=== PATIENT | female | born 1980 | race Caucasian/White ===

== ENCOUNTER → 2024-05-10 | Outpatient (CLI) | payer SELFPAY ==
--- NOTE | 2024-05-10 15:45 | RAD_ITS ---
EXAM: XR THORACIC SPINE, 3 VIEWS CLINICAL INDICATION: PAIN IN THORACIC SPIN TECHNIQUE: Frontal, lateral and swimmer''s views of the thoracic spine. COMPARISON: No relevant prior studies available. FINDINGS: VERTEBRAE: Unremarkable. Preserved vertebral body height. No fracture. No spondylolisthesis. Preservation of the normal thoracic kyphosis. No significant facet arthropathy. DISC SPACES: Unremarkable. Disc spaces are maintained. RAD/Thoracic Spine 3 Views IMPRESSION: No evidence of thoracic spinal fracture or spondylolisthesis. Electronically Signed: Efren Ward MD at 0:10 EST ,
--- NOTE | 2024-05-10 15:45 | RAD_ITS ---
EXAM: XR LUMBOSACRAL SPINE, 2 OR 3 VIEWS CLINICAL INDICATION: PAIN IN LOWER BACK TECHNIQUE: Frontal and lateral views of the lumbar spine and sacrum. COMPARISON: No relevant prior studies available. FINDINGS: VERTEBRAE: There is 6 mm anterior spondylolisthesis of L5 on S1. Preserved vertebral body height. No fracture. Preservation of the normal lumbar lordosis. No significant facet arthropathy. DISC SPACES: No acute findings. Disc spaces are maintained. GASTROINTESTINAL TRACT: Unremarkable as visualized. Included bowel gas pattern is non-obstructive. RAD/Lumbar Spine 2 or 3 Views IMPRESSION: No acute osseous abnormalities. There is 6 mm anterior spondylolisthesis of L5 on S1. Electronically Signed: Efren Ward MD at 0:10 EST ,
== END | disposition home or self-care (01) ==
PROVIDERS: PCP Family Medicine
DX: M54.6 Pain in thoracic spine (principal); M54.50 Low back pain, unspecified

== ENCOUNTER 2024-05-13 12:55 | Emergency (ER) | payer OTHER, SELFPAY ==
[2024-05-13 12:56] VITALS: BP 134/83; PULSE 91; RESP 16; TEMP 36.9; O2SAT 99; BMI 30.5
--- NOTE | 2024-05-13 13:48 | CT_ITS ---
STUDY: CT ABDOMEN AND PELVIS WITH CONTRAST REASON FOR EXAM: Female, 43 years old. Chronic abdominal pain. RADIATION DOSAGE (If Supplied By Facility): CTDIvol = ( 14.01 ) mGy, DLP = ( 1234.70 ) mGycm TECHNIQUE: Transaxial images were obtained from the dome of the diaphragm to the symphysis pubis without oral contrast. IV 100mL Isovue-300 was administered. Sagittal and coronal images were reconstructed. Individualized dose optimization techniques were used for this CT. COMPARISON: None. FINDINGS: The visualized lung bases are unremarkable. The visualized portions of the heart are within normal limits. Normal liver. Normal gallbladder and extrahepatic biliary system. Normal spleen. Normal pancreas. Normal bilateral adrenal glands. Normal right kidney. Normal left kidney. Normal visualized stomach. Normal small intestine. There are scattered colonic diverticula consistent with diverticulosis. The appendix is visualized and appears normal. Normal abdominal aorta. Normal inferior vena cava. Normal retroperitoneum. Normal urinary bladder. There is a small umbilical hernia containing fat. Normal osseous structures. CT/Abdomen/Pelvis W IV Cont ONLY IMPRESSION: Scattered sigmoid diverticula. Small umbilical hernia. Electronically Signed: Hemal Trejo MD at 15:52 EST ,
--- NOTE | 2024-05-13 13:56 | EX.ED.DYSGE1 ---
HPI <VIRIDIANA Escamilla - Last Filed: 05/13/24 16:24> History of Present Illness Chief Complaint: Back Narrative Narrative: 43-year-old female states she has had thoracic and lumbar back pain since February 26, 2024. She went to the [facility] and had outpatient x-rays which was negative for fracture and showed lower back spondylolisthesis. She states her back pain is not improving and she has an MRI scheduled next week. The pain is mainly in bilateral thoracic muscular areas and she feels like it is wrapping around her rib cage and causing her abdominal swelling. She thinks it is because palpitation she experienced last night while lying in bed. She states her normal resting heart rate is 60 but it got up to 95. She has no chest pain or shortness of breath. She is worried because her mom had back pain and when she had imaging was found to have spinal metastasis. PFSH <VIRIDIANA Escamilla - Last Filed: 05/13/24 16:24> PFSH Allergy/AdvReac Type Severity Reaction Status Date / Time amoxicillin (From Augmentin) AdvReac Intermediate headache Verified 05/13/24 13:00 clavulanic acid (From AdvReac Intermediate headache Verified 05/13/24 13:00 Augmentin) Social History (Updated 04/15/17 @ 09:26 by VIRIDIANA Campo) Smoking Status: Never smoker alcohol intake: never ROS <VIRIDIANA Escamilla - Last Filed: 05/13/24 16:24> ROS ED ROS Narrative Constitutional: Negative for fever, chills, malaise. CVS: Positive for palpitations. Negative for chest pain, syncope. Respiratory: Negative for shortness of breath, cough, orthopnea. GI: Positive for abdominal pain, nausea. Negative for vomiting, diarrhea, constipation, melena, hematochezia. : Negative for dysuria, hematuria or frequency. EXAM <VIRIDIANA Escamilla - Last Filed: 05/13/24 16:24> Physical Exam Narrative Exam Narrative: CONST: Patient sitting in no acute distress. EYES: Normal inspection. NECK: Normal inspection. RESP: No respiratory distress, CTAB. CVS: Regular rate and rhythm, no murmur, no gallop. ABD: Soft with minimal epigastric tenderness, no guarding or rebound, nondistended, no hepatosplenomegaly. Back: Normal inspection, no reproducible tenderness of the spine or back. No CVA tenderness. SKIN: Color normal, no rash, warm, dry, intact. EXTREMITIES: Normal appearance, no pedal edema. 5/5 strength in upper and lower extremities. 2+ radial and DP pulses. NEURO: Alert and answering questions appropriately. PSYCH: Normal affect. Const Vital Signs: 05/13/24 12:56 05/13/24 15:13 Temperature 98.4 F Temperature Source Oral Pulse Rate 91 Respiratory Rate 16 18 Blood Pressure 134/83 H 142/97 H Blood Pressure Mean 100 112 Pulse Ox 99 98 Oxygen Delivery Method Room Air Room Air <Dr. Aly Uribe MD - Last Filed: 05/13/24 14:58> Physical Exam Const Vital Signs: 05/13/24 12:56 05/13/24 15:13 Temperature 98.4 F Temperature Source Oral Pulse Rate 91 Respiratory Rate 16 18 Blood Pressure 134/83 H 142/97 H Blood Pressure Mean 100 112 Pulse Ox 99 98 Oxygen Delivery Method Room Air Room Air MDM <VIRIDIANA Escamilla - Last Filed: 05/13/24 16:24> [facility] Narrative Medical decision making narrative: History gathered from: Patient and spouse Differential includes but not limited to musculoskeletal back pain, GERD, gastritis, pancreatitis, lower likelihood of cholecystitis, appendicitis or diverticulitis based on exam Patient has had several months of mid and lower back pain without trauma. She feels that recently her abdomen has been distended. She also had palpitations last night in bed. She is concerned all of the symptoms are connected to her back. She is worried because her mom in the past had similar back pain and had metastatic cancer. Patient is awake and alert in no distress with stable vital signs. She has a normal cardiopulmonary exam. Abdomen is soft with minimal epigastric tenderness. I do not appreciate distention. There is no peritoneal signs. Her back pain is reproducible with movement but not to palpation. Lower extremity MSPs and reflexes are intact. Overall blood work is unremarkable. Urinalysis is negative. There was occult blood since she is on her menstrual cycle. CT of the abdomen/pelvis shows no acute findings. I recommended she follow-up with her primary care doctor for further evaluation. She already has an MRI scheduled for her back. She was discharged in stable condition. I have personally performed a face to face assessment of the patient and have reviewed the JC Note. I performed a substantive portion of the visit including all aspects of the following. My jain findings include: History is 43-year-old female no seen past medical history. Complaining of 2 to 3-month history of lower back pain since early February. No prior back surgery. No fall or trauma. No fever no dysuria. She is concerned because her mom in the past had similar back pain and when she finally got it diagnosed she had metastatic cancer. Patient states she has had about 10 pound weight loss. She denies any weakness or numbness in her lower extremities. Exam is [well-appearing 43-year-old female. Vital signs are stable afebrile. H EENT exam normal. Moist with membranes. Neck nontender. Lungs clear. Heart regular rate and rhythm no murmur rate about 85. Chest wall ribs nontender. Abdomen soft nontender. No peritoneal signs. Moving all 4 extremities. Normal strength and sensation. 5 out of 5 manager material. Bilateral. Dorsi plantarflexion intact. No cauda equina. No saddle anesthesia. Back she has no spine tenderness. No signs of trauma to her back. Her right paralumbar soft tissues she is reproducible pain on the muscle this may be secondary to muscle skeletal pain. Neurologically she is awake alert. No focal motor deficits.] Medical Decision Making [43-year-old with back pain concern for malignancy due to prior history of her mom having similar symptoms and her recent weight loss. CAT scan labs are being obtained.] Other additions or changes: [None] Lab Data Attestation: I reviewed the patient's lab results. Labs: Laboratory Results - last 24 hr 05/13/24 15:00 WBC 7.9 RBC 4.70 Hgb 14.0 Hct 42.2 MCV 89.8 MCH 29.8 MCHC 33.2 RDW Std Deviation 40.6 RDW Coeff of Fabian 12.2 Plt Count 287 MPV 10.6 Immature Gran % (Auto) 0.100 Neut % (Auto) 66.9 Lymph % (Auto) 24.6 [place] % (Auto) 6.6 Eos % (Auto) 1.5 Baso % (Auto) 0.3 Absolute Neuts (auto) 5.3 Absolute Lymphs (auto) 1.94 Nucleated RBC % 0 Sodium 138 Potassium 3.3 L Chloride 106 Carbon Dioxide 26.0 Anion Gap 7 BUN 10 Creatinine 0.93 Estim Creat Clear Calc 98.19 Est GFR (MDRD) Af Amer 84 Est GFR (MDRD) Non-Af 69 BUN/Creatinine Ratio 10.7 Glucose 88 Calcium 9.1 Total Bilirubin 0.40 AST 12 L ALT 18 Alkaline Phosphatase 52 Total Protein 7.4 Albumin 3.9 Globulin 3.5 Albumin/Globulin Ratio 1.1 Lipase 42 Urine Color Straw Urine Clarity Clear Urine pH 6.5 Ur Specific [place] 1.005 Urine Protein 15 H Urine Glucose (UA) Normal Urine Ketones Negative Urine Occult Blood 250 H Urine Nitrite Negative Urine Bilirubin Negative Urine Urobilinogen Normal Ur Leukocyte Esterase Negative Urine RBC 0-5 SEEN Urine WBC 0 SEEN Ur Squamous Epith Cells 0-5 SEEN Urine Bacteria RARE Urine Mucus 0 SEEN Urine Test Negative Radiography Diagnostic Testing: Clinical Impression(s) from Imaging Studies Abdomen/Pelvis CT 05/13/24 13:48 IMPRESSION: Scattered sigmoid diverticula. Small umbilical hernia. Electronically Signed: Hemal Trejo MD at 15:52 EST , <Dr. Aly Uribe MD - Last Filed: 05/13/24 14:58> [facility] Narrative Medical decision making narrative: I have personally performed a face to face assessment of the patient and have reviewed the JC Note. I performed a substantive portion of the visit including all aspects of the following. My jain findings include: History is 43-year-old female no seen past medical history. Complaining of 2 to 3-month history of lower back pain since early February. No prior back surgery. No fall or trauma. No fever no dysuria. She is concerned because her mom in the past had similar back pain and when she finally got it diagnosed she had metastatic cancer. Patient states she has had about 10 pound weight loss. She denies any weakness or numbness in her lower extremities. Exam is [well-appearing 43-year-old female. Vital signs are stable afebrile. H EENT exam normal. Moist with membranes. Neck nontender. Lungs clear. Heart regular rate and rhythm no murmur rate about 85. Chest wall ribs nontender. Abdomen soft nontender. No peritoneal signs. Moving all 4 extremities. Normal strength and sensation. 5 out of 5 manager material. Bilateral. Dorsi plantarflexion intact. No cauda equina. No saddle anesthesia. Back she has no spine tenderness. No signs of trauma to her back. Her right paralumbar soft tissues she is reproducible pain on the muscle this may be secondary to muscle skeletal pain. Neurologically she is awake alert. No focal motor deficits.] Medical Decision Making [43-year-old with back pain concern for malignancy due to prior history of her mom having similar symptoms and her recent weight loss. CAT scan labs are being obtained.] Other additions or changes: [None] History & Record Review Discussion w/independent historian: Patient Lab Data Labs: Laboratory Results - last 24 hr 05/13/24 15:00 WBC 7.9 RBC 4.70 Hgb 14.0 Hct 42.2 MCV 89.8 MCH 29.8 MCHC 33.2 RDW Std Deviation 40.6 RDW Coeff of Fabian 12.2 Plt Count 287 MPV 10.6 Immature Gran % (Auto) 0.100 Neut % (Auto) 66.9 Lymph % (Auto) 24.6 [place] % (Auto) 6.6 Eos % (Auto) 1.5 Baso % (Auto) 0.3 Absolute Neuts (auto) 5.3 Absolute Lymphs (auto) 1.94 Nucleated RBC % 0 Sodium 138 Potassium 3.3 L Chloride 106 Carbon Dioxide 26.0 Anion Gap 7 BUN 10 Creatinine 0.93 Estim Creat Clear Calc 98.19 Est GFR (MDRD) Af Amer 84 Est GFR (MDRD) Non-Af 69 BUN/Creatinine Ratio 10.7 Glucose 88 Calcium 9.1 Total Bilirubin 0.40 AST 12 L ALT 18 Alkaline Phosphatase 52 Total Protein 7.4 Albumin 3.9 Globulin 3.5 Albumin/Globulin Ratio 1.1 Lipase 42 Urine Color Straw Urine Clarity Clear Urine pH 6.5 Ur Specific [place] 1.005 Urine Protein 15 H Urine Glucose (UA) Normal Urine Ketones Negative Urine Occult Blood 250 H Urine Nitrite Negative Urine Bilirubin Negative Urine Urobilinogen Normal Ur Leukocyte Esterase Negative Urine RBC 0-5 SEEN Urine WBC 0 SEEN Ur Squamous Epith Cells 0-5 SEEN Urine Bacteria RARE Urine Mucus 0 SEEN Urine Test Negative Radiography Diagnostic Testing: Clinical Impression(s) from Imaging Studies Abdomen/Pelvis CT 05/13/24 13:48 IMPRESSION: Scattered sigmoid diverticula. Small umbilical hernia. Electronically Signed: Hemal Trejo MD at 15:52 EST , Discharge Plan Triage Chief Complaint: Back ED Midlevel Provider: Mi Jalloh ED Provider: Aly Uribe Dx/Rx/DC Orders Clinical Impression: Abdominal pain, Chronic back pain Instructions: ED Back Pain (Acute or Chronic) Primary Care Provider: Nichole Andre Referrals: Nichole Andre, DO [Primary Care Provider] - Activity Restrictions/Additional Instructions: Your screening labs and CT scan of your abdomen/pelvis today showed no significant findings. I recommend you try the prescriptions from your primary care doctor for your back pain and follow-up for your scheduled MRI. Print Language: Lao Disposition Disposition: Home, Self Care Discharge Date/Time: 05/13/24 16:22
[2024-05-13 15:07] LABS: Mucous, Urine 0 SEEN /hpf (<or=2+); White Blood Cells 0 SEEN /hpf (0-5)
[2024-05-13] MEDS: Ketorolac 30 MG/ML Syringe IV (15:10)
[2024-05-13 15:13] VITALS: BP 142/97; RESP 18; O2SAT 98
[2024-05-13 15:13] LABS: Color, Urine Straw (Yellow); Glucose, Dipstick Normal (Normal); Ketone-Dipstick Negative (Negative); Leukocyte Esterase-Dipstick Negative /ul (Negative); Nitrite-Dipstick Negative (Negative); Occult Blood-Urine 250 /ul (Negative); Protein-Dipstick 15 mg/dl (Negative); Specific Gravity, Urine 1.005 (1.002-1.030); Urine Bilirubin Dipstick Negative (Negative); Urine Clarity Clear (Clear); Urine Urobilinogen Normal (Normal); Urine pH 6.5 (5.0 - 8.0)
[2024-05-13 15:15] LABS: Absolute Lymphocyte Count 1.94 X10^3/uL (0.83-4.51); Absolute Neutrophil Count 5.3 X10^3/uL (2.0-7.7); Basophil# 0.02 X10^3/uL; Basophil% 0.3 % (0-1); Eosinophil# 0.12 X10^3/uL; Eosinophils% 1.5 % (0-5); Hematocrit 42.2 % (37-47); Lymphocyte # 1.94 X10^3/ul (0.83-4.51); Lymphocyte % 24.6 % (19-41); Mean Corp Hgb Conc 33.2 g/dL (32-36); Mean Corpuscular Hgb 29.8 pg (27.0-32.0); Mean Corpuscular Volume 89.8 fL (81-99); Mean Platelet Vol. 10.6 fl (6.2-12.0); Monocyte# 0.52 X10^3/uL; Monocyte% 6.6 % (0-10); NRBC Flagged by Analyzer 0 % (0-5); Neutrophil # 5.27 X10^3/uL (2.7-7.7); Neutrophil % 66.9 % (47-70); Platelet Count 287 K/mm3 (150-450); RBC Distribution Width CV 12.2 % (11.6-14.6); RBC Distribution Width SD 40.6 fl (35.1-43.9); White Blood Count 7.9 K/mm3 (4.4-11.0)
[2024-05-13 15:26] LABS: Bacteria RARE /hpf (None Seen); Red Blood Cells-Urine 0-5 SEEN /hpf (0-5); Squamous Epithelial Cells - UA 0-5 SEEN /hpf (5-10)
[2024-05-13 15:27] LABS: Internal QC Validated? YES +Cl - CLEAR BKGD; Pregnancy, Urine Negative Negative
[2024-05-13 15:28] LABS: ALB/GLOB Ratio 1.1 RATIO (0.9-2.4); AST(SGOT) 12 U/L (15-37); Alanine Aminotransfer ALT/SGPT 18 U/L (13-56); Albumin, Serum 3.9 g/dL (3.2-5.0); Alkaline Phosphatase 52 U/L (45-117); Anion Gap 7 (5-15); BUN 10 mg/dL (7-18); BUN/Creat Ratio 10.7 RATIO (10-20); Calcium,Total 9.1 mg/dL (8.5-10.1); Chloride 106 mmol/L (98-107); Creatinine, Serum 0.93 mg/dL (0.55-1.02); EST Glomerular Filtration Rate 69 mL/min (>60); Est Glom Filt Rate - Afr Amer 84 mL/min (>60); Estimated Creatinine Clearance 98.19 ml/min; Globulin 3.5 g/dL (2.2-4.2); Glucose 88 mg/dL (74-106); Lipase 42 U/L (13-75); Potassium 3.3 mmol/L (3.5-5.1); Protein, Total 7.4 g/dL (6.4-8.2); Sodium Level 138 mmol/L (136-145)
== END 2024-05-13 16:22 | disposition home or self-care (01) ==
PROVIDERS: Physician Assistant; Emergency Provider Emergency Medicine; PCP Family Medicine; Visit Provider Emergency Medicine
DX: R10.9 Unspecified abdominal pain (principal); R00.2 Palpitations; M54.50 Low back pain, unspecified; G89.29 Other chronic pain

== ENCOUNTER 2024-05-27 12:31 | Outpatient (RCR) | payer SELFPAY | END 2024-05-27 19:00 | disposition home or self-care (01) | LOC: PT 12:31 | PROVIDERS: PCP Family Medicine | DX: M54.9 Dorsalgia, unspecified (principal) ==